=== PATIENT | male | born 1965 | race Caucasian/White ===

== ENCOUNTER → 2017-10-18 | Outpatient (CLI) | payer OTHER ==
--- NOTE | 2017-10-18 12:30 | CT ---
EXAMINATION TYPE: CT soft tissue neck w con DATE OF EXAM: 10/18/2017 HISTORY: Bilateral neck swelling and difficulty swallowing. COMPARISON: NONE CT DLP: 1204 mGycm. Automated Exposure Control for Dose Reduction was Utilized. TECHNIQUE: CT scan of the neck is performed with IV Contrast, patient injected with 100 mL of Isovue 300, axial images are obtained, coronal and sagittal reformatted images are reviewed. FINDINGS: Airway: There is irregular soft tissue attenuation within the vallecula and at the posterior inferior tongue base with partial obscuration of the left piriform sinus and narrowing of the oropharynx. Thi s is marked on series 3 image 46 through 48. Tonsillar prominence is seen with left-sided tonsiliths. Parotid/submandibular glands: Parotid glands and submandibular glands are symmetric without surroundi ng inflammatory change. Carotid/Vascular Structures: There is a conventional three-vessel branch pattern of the aortic arch. Crescentic left eccentric noncalcific atheromatous plaquing is seen at the distal common carotid charlotte ry extending into the carotid bulb with stenosis of less than 50% (nonhemodynamically significant phyllis nosis). Major vascular structures appear patent. Osseous Structures: Moderate mucosal thickening is present within the ethmoid sinuses with mild mucos al thickening of the left maxillary sinus and polypoid moderate mucosal thickening in the more inferi or right maxillary sinus. Scant mucosal thickening within the inferior left frontal sinus and within the sphenoid sinuses are also appreciated. Mastoid air cells are well aerated. Osseous structures pierre ear intact with multilevel degenerative change of the cervical spine. Other: There is bulkiness of the thyroid isthmus as it is mildly enlarged measuring 1.1 cm. There is no substernal extension to the thyroid gland. No discrete nodule on CT seen within the thyroid isthmu s, however there is an approximately 8 mm hypoechoic right thyroid nodule that could be further evalu ated with thyroid ultrasound. Scattered areas of subsegmental atelectasis are seen within the superior mediastinum as well as media stinal lipomatosis. IMPRESSION: 1. Irregularly marginated soft tissue attenuation within the vallecula, left piriform sinus and poste rior base of the tongue. This could relate to adherent secretions or irregularly marginated mass and direct visualization with laryngoscopy is recommended. 2. Mildly large size of the thyroid isthmus and 8 mm hypoechoic right thyroid nodule for which furthe r characterization with thyroid ultrasound is recommended.
== END | disposition home or self-care (01) ==
LOC: RADCTMAIN 08:17
PROVIDERS: ATTEND Family Medicine
DX: E04.1 Nontoxic single thyroid nodule (principal)
CPT/HCPCS: 70491; Q9967

== ENCOUNTER → 2018-02-07 | Outpatient (CLI) | payer OTHER ==
--- NOTE | 2018-02-07 11:01 | US ---
EXAMINATION TYPE: US thyroid st tissue head/neck DATE OF EXAM: 02/07/2018 COMPARISON: CT 10/18/2017 CLINICAL HISTORY: E04.1 Thyroid nodule. GLAND SIZE: Right Lobe: 6.4 x 2.1 x 2.2 cm Overall Parenchyma: heterogenous Left Lobe: 6.5 x 2.0 x 1.9 cm Overall Parenchyma: heterogeneous Isthmus Thickness: 0.7 cm NODULES RIGHT: # of nodules measured on right: 1 1. 1.2 X 0.9 x 0.9 cm hypoechoic solid nodule at the mid pole with well-defined margins; . This no dule is taller than wide and shows no intranodular vascularity. Prior size: no prior COMPARISON: This is larger than 0.[address] examination. LEFT: # of nodules measured on left: 1 1. 1.3 X 0.9 x 1.3 cm hypoechoic solid nodule at the lower pole with well-defined margins; . This nodule is wider than tall and shows . Prior size: no prior ISTHMUS: # of nodules measured in the isthmus: 0 Bilateral neck scanned, no evidence of lymphadenopathy. IMPRESSION: 1. Solid nodules larger than 1 cm within the bilateral thyroid lobes.
== END ==
LOC: RADUSWWP 08:35
PROVIDERS: ATTEND Family Medicine
DX: E04.2 Nontoxic multinodular goiter (principal)
CPT/HCPCS: 76536

== ENCOUNTER 2018-03-27 08:54 | Day surgery (SDC) | payer OTHER ==
[2018-03-27 09:29] VITALS: RESP 16; TEMP 97.6
[2018-03-27 10:46] VITALS: PULSE 72
[2018-03-27 10:48] VITALS: BP 144/80
--- NOTE | 2018-03-27 12:28 | US ---
EXAMINATION TYPE: US FNA thyroid each add lesion, US FNA thyroid first lesion DATE OF EXAM: 03/27/2018 COMPARISON: NONE HISTORY: Thyroid nodules. Maximal barrier technique was utilized. After informed consent, skin overlying the right thyroid nod ule was localized with ultrasound and the overlying skin prepped and draped. Ultrasound was utilized using sterile technique. Lidocaine was used for local anesthesia. Five passes with a 25-gauge needle were made into the nodule and aspirated specimen was submitted to cytology. Using similar technique the left lower thyroid nodule was sampled. Following the procedure hemostasis achieved. No immediat e complication. The patient discharged in stable condition. IMPRESSION: STATUS POST ULTRASOUND GUIDED FINE NEEDLE ASPIRATION OF LEFT AND RIGHT THYROID NODULES, P ATHOLOGY IS PENDING. THIS PROCEDURE WAS PERFORMED BY THE UNDERSIGNED.
== END 2018-03-27 10:40 | disposition home or self-care (01) ==
LOC: RADPROMAIN 08:54
PROVIDERS: ATTEND Family Medicine
DX: E04.1 Nontoxic single thyroid nodule (principal)
CPT/HCPCS: 10005; 10006; 76942; 88173; 88305

== ENCOUNTER → 2018-10-22 | Outpatient (CLI) | payer OTHER ==
--- NOTE | 2018-10-22 10:22 | ECHOF ---
Referral Reason:I50.30 CHF MEASUREMENTS -------- HEIGHT: 185.4 cm WEIGHT: 204.1 kg BP: RVIDd: 3.2 cm (< 3.3) IVSd: 1.4 cm (0.6 - 1.1) LVIDd: 4.5 cm (3.9 - 5.3) LVPWd: 1.6 cm (0.6 - 1.1) IVSs: 1.9 cm LVIDs: 3.1 cm LVPWs: 1.9 cm LAESV Index (A-L): 25.19 ml/m Ao Diam: 3.5 cm (2.0 - 3.7) AV Cusp: 2.5 cm (1.5 - 2.6) LA Diam: 4.1 cm (2.7 - 3.8) MV EXCURSION: 17.722 mm (> 18.000) MV EF SLOPE: 71 mm/s (70 - 150) EPSS: 0.4 cm MV E Michael: 0.77 m/s MV DecT: 239 ms MV A Michael: 0.72 m/s MV E/A Ratio: 1.07 RAP: 5.00 mmHg RVSP: 22.84 mmHg FINDINGS -------- Sinus rhythm. This was a technically difficult study with suboptimal views. Morbid Obesity The left ventricular size is normal. There is moderate concentric left ventricular hypertrophy. O verall left ventricular systolic function is low-normal with, an EF between 50 - 55 %. The diastoli c filling pattern is normal for the age of the patient 9.63. The right ventricle is normal in size. Normal LA size by volume 22+/-6 ml/m2. The right atrium was not well visualized. xx ml of Lumason was utilized for enhancement of images. Interatrial and interventricular septum intact. The aortic valve was not well visualized. There is no evidence of aortic regurgitation. There is no evidence of aortic stenosis. No mitral regurgitation. Mild tricuspid regurgitation present. There is no evidence of pulmonary hypertension. The right v entricular systolic pressure, as measured by Doppler, is 22.84mmHg. There is no pulmonic regurgitation present. The aortic root size is normal. IVC Not well visulized. There is no pericardial effusion. CONCLUSIONS -------- 1. Sinus rhythm. 2. This was a technically difficult study with suboptimal views. 3. Morbid Obesity 4. The left ventricular size is normal. 5. There is moderate concentric left ventricular hypertrophy. 6. Overall left ventricular systolic function is low-normal with, an EF between 50 - 55 %. 7. The diastolic filling pattern is normal for the age of the patient 9.63 8. The right ventricle is normal in size. 9. Normal LA size by volume 22+/-6 ml/m2. 10. The right atrium was not well visualized. 11. xx ml of Lumason was utilized for enhancement of images. 12. Interatrial and interventricular septum intact. 13. The aortic valve was not well visualized. 14. There is no evidence of aortic regurgitation. 15. There is no evidence of aortic stenosis. 16. No mitral regurgitation. 17. Mild tricuspid regurgitation present. 18. There is no evidence of pulmonary hypertension. 19. The right ventricular systolic pressure, as measured by Doppler, is 22.84mmHg. 20. There is no pulmonic regurgitation present. 21. The aortic root size is normal. 22. IVC Not well visulized. 23. There is no pericardial effusion. PLATE FINISHER: Jessie Moon RDCS
== END | disposition home or self-care (01) ==
LOC: RADECHMAIN 08:13
PROVIDERS: ATTEND Family Medicine
DX: I07.1 Rheumatic tricuspid insufficiency (principal); I50.30 Unspecified diastolic (congestive) heart failure; E66.01 Morbid (severe) obesity due to excess calories
CPT/HCPCS: C8929; Q9950; 93306